=== PATIENT | male | born 1950 | race American Indian/Alaskan Native ===

== ENCOUNTER 2019-03-18 18:25 | Emergency (ER) | payer MEDICARE, OTHER ==
[2019-03-18 19:21] VITALS: BP 112/79
[2019-03-18] MEDS ORDERED: TYLENOL PO ONE (21:49)
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
--- NOTE | 2019-03-19 00:30 | Cat Scan Report ---
PROCEDURE: CT LUMBAR SPINE WO CON TECHNIQUE: Computerized axial tomography of the lumbar spine was performed from T12 to the sacrum wi thout contrast material. CT DOSE LENGTH PRODUCT: mGycm HISTORY: LUMBAR SPINE PAIN COMPARISONS: None . FINDINGS: Vertebral alignment and height are within normal limits. An acute fracture is not identified. Pre and paravertebral soft tissues are within normal limits. Lumbar ventricles are noted to the congenitally short. L1-2: Mild degree bilateral facet arthropathy is noted without significant spinal canal or neural for aminal compromise. . L2-3: Mild degree bilateral facet arthropathy is noted without significant spinal canal or neural fo raminal compromise.. L3-4: Moderate degree spinal canal stenosis noted secondary to mild degree bilateral facet and ligame ntous hypertrophy superimposed on short pedicles. There is no significant neural foraminal stenosis.. L4-5: Moderate degree spinal canal stenosis is noted secondary to moderate degree bilateral facet and ligamentous hypertrophy and mild degree broad-based disc bulge superimposed on short pedicles. Mild degree bilateral neural foraminal stenosis is noted without obvious impingement of the exiting nerve roots.. L5-S1: Mild degree spinal canal stenosis is noted secondary to moderate degree diffuse disc bulge and moderate degree of bilateral facet and ligamentous hypertrophy. There is also mild to moderate degre e bilateral neural foraminal stenosis. Other: None . 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 Multilevel lumbar spondylosis as noted above.. No acute fracture This document is electronically signed by Noe Madsen MD., March 18 2019 10:48:52 PM ET
== END 2019-03-19 00:02 | disposition home or self-care (01) ==
LOC: ED 18:25
DX: M62.830 Muscle spasm of back (principal); M54.5 Low back pain
CPT/HCPCS: 72131